=== PATIENT | female | born 1975 | race Caucasian/White ===

== ENCOUNTER 2020-01-15 17:32 | Observation (INO) | payer OTHER, SELFPAY ==
--- NOTE | ~2020-01-15 | XR_ITS ---
EXAMINATION: XR chest 2V DATE: 01/15/2020 19:02 INDICATION: Productive cough, shortness of breath and chest tightness TECHNIQUE: PA and lateral views of the chest were obtained. COMPARISON: Chest radiograph dated 03/28/2007 FINDINGS: The lungs remain clear with no focal airspace opacities, pulmonary edema, pleural effusion or pneumot horax. The cardiomediastinal silhouette is normal. Mild thoracic spondylosis with mild anterior wedgi ng of a couple mid thoracic vertebral bodies. Cholecystectomy clips in the right upper quadrant. IMPRESSION: 1. No acute cardiopulmonary disease. Reviewed, dictated and finalized at location A.
--- NOTE | ~2020-01-15 | US_ITS ---
EXAMINATION: US venous doppler [facility] DATE: 01/16/2020 10:19 INDICATION: Left thigh pain. TECHNIQUE: Grayscale ultrasound images without and with compression and Doppler ultrasound images of the left lower extremity veins were obtained. COMPARISON: None. FINDINGS: The visualized portions of left common femoral vein, profunda (deep) femoral vein, femoral vein, popl iteal vein, peroneal veins, posterior tibial veins, and greater saphenous vein outflow are patent. IMPRESSION: 1. No deep venous thrombosis. Reviewed, dictated and finalized at location A.
--- NOTE | ~2020-01-15 | CT_ITS ---
EXAMINATION: CTA chest PE protocol DATE: 01/15/2020 19:49 INDICATION: Postoperative dyspnea and chest pain TECHNIQUE: Computed tomography (CT) pulmonary angiogram of the chest was performed with 100 mL Omnipa que-350 intravenous contrast. Additional 3D reconstructions utilizing coronal maximum intensity proje ction (MIP) were performed. Automated exposure control and iterative reconstruction technique were em ployed. The dose-length product was 859.21 mGy-cm. COMPARISON: None FINDINGS: Excellent contrast opacification of the pulmonary arteries. There is mild streak artifact from dense contrast in the superior vena cava and right atrium. Mild scattered respiratory motion artifact which does not significantly limit evaluation. Small pulmonary to old films defect in the posterior segmen albert pulmonary artery of the left lower lobe. No other pulmonary emboli identified. Mosaic attenuation with dependent lung predominant likely reflecting air trapping related to small airway disease. No p neumonia, pulmonary edema, pleural effusion or pneumothorax. Heart size is normal. No leftward bowing of the ventricular septum to suggest heart strain. No pericardial effusion. Thoracic aorta is normal in caliber with no dissection. No pathologically enlarged abdominal or pelvic lymphadenopathy. Mehreen cystectomy clips at the gallbladder fossa. Visualized upper abdomen is otherwise unremarkable. Mild t horacic spondylosis. Chronic mild anterior wedging at T7. IMPRESSION: 1. Single pulmonary embolism in the posterior basilar segmental pulmonary artery of the left lower lo be. Reviewed, dictated and finalized at location A. IMPRESSION: 1. Single pulmonary embolism in the posterior basilar segmental pulmonary arter y of the left lower lobe.
--- NOTE | 2020-01-15 17:34 | ECG_ITS ---
Measurements Intervals [place] Rate: 107 P: 31 NC: 108 QRS: 38 QRSD: 84 T: 20 QT: 318 QTc: 426 Interpretive Statements SINUS TACHYCARDIA WITH SHORT NC INTERVAL NONSPECIFIC T-WAVE ABNORMALITY- INFERIOR LEADS ABNORMAL ECG Electronically Signed On 01-15-2020 19:45:02 CDT by Alexys Boles D.O.
[2020-01-15 17:44] VITALS: BP 137/70; PULSE 109; RESP 16; TEMP 36.8; O2SAT 100
[2020-01-15 17:49] VITALS: O2SAT 100
[2020-01-15 17:59] LABS: Basophils Absolute Auto 0.1 K/mm3 (0.0-0.1); Basophils Percent Auto 0.8 % (0.2-1.2); Eosinophils Absolute Auto 0.3 K/mm3 (0-0.3); Eosinophils Percent Auto 3.1 % (0-4.4); Hematocrit 31.2 % (37.0-47.0); Hemoglobin 9.1 g/dL (12.0-15.0); Immature Granulocyte Absolute 0.05 K/mm3 (0.00-0.031); Immature Granulocyte Percent A 0.6 % (0-0.5); Lymphocytes Percent Auto 18.1 % (18.3-44.2); Mean Corpuscular HGB Conc 29.2 g/dl (32-36); Mean Corpuscular Hemoglobin 19.6 pg (26-34); Mean Corpuscular Volume 67.1 fl (80-100); Mean Platelet Volume 8.9 fl (7.4-10.4); Monocytes Absolute Auto 0.6 K/mm3 (0.1-0.6); Monocytes Percent Auto 7.6 % (2.6-8.5); Neutrophils Absolute Auto 5.8 K/mm3 (1.3-6.7); Neutrophils Percent Auto 69.8 % (45.5-73.1); Platelet Count Result 482 k/mm3 (150-375); Red Blood Count 4.65 M/mm3 (4.2-5.4); Red Cell Distribution Width 19.3 % (11.5-14.5); White Blood Count 8.3 K/mm3 (4.5-10.0)
[2020-01-15 18:09] LABS: Prothrombin Time 13.1 Seconds (11.1-14.7)
[2020-01-15 18:10] LABS: Partial Thromboplastin Time 28.1 SECONDS (22.3-36.8)
[2020-01-15 18:11] LABS: Anion Gap 12 mmol/L (8-16); Blood Urea Nitrogen 6 mg/dL (7-17); Calcium 9.8 mg/dL (8.4-10.2); Carbon Dioxide 24 mmol/L (22-30); Chloride 103 mmol/L (98-107); Estimated CRCL calculation 136 ml/min; Estimated Glomerular Filt Rate > 60; Glucose 103 mg/dL (65-105); Potassium 4.2 mmol/L (3.4-5.0); Sodium 139 mmol/L (137-145)
[2020-01-15 18:16] LABS: Hypochromasia 2+ (NORMAL); Platelet Estimate Increased (Adequate)
[2020-01-15 18:18] LABS: Add Urine Microscopic? YES; Appearance Urine Clear (Clear); Bacteria Urine Trace /hpf; Bilirubin Urine Negative (Negative); Blood Urine Negative (Negative); Color Urine Colorless (Yellow); Glucose Urine UA Negative (Negative); Ketones Urine Negative (Negative); Leukocyte Esterase Ur Trace LEU/UL (Negative); Nitrate Urine Negative (Negative); Protein Urine Negative (Negative); RBC Urine 0-2 /hpf (0-2); Specific Grav Ur 1.005 (1.001-1.035); Squamous Epithelial Cell Urine Few /hpf (Few); Urobilinogen Urine Negative mg/dL (<2.0); WBC Urine 0-3 /hpf
[2020-01-15 18:23] LABS: Troponin I < 0.012 ng/mL (0.000-0.034)
[2020-01-15 18:45] VITALS: PULSE 107
[2020-01-15] MEDS: ASPIRIN 81 MG CHEWABLE TABLET 324 MG PO (18:46)
[2020-01-15 19:10] VITALS: BP 149/82; PULSE 101; RESP 18; O2SAT 100
--- NOTE | 2020-01-15 19:10 | PC.NURSE ---
report received at this time. denies any needs/concerns. call light in reach-encouraged to use. VS stable, RR even and unlabored, pt in NAD. pt remains hooked up to monitor, will continue to monitor pt for baseline status changes.
--- NOTE | 2020-01-15 19:21 | ED.GENADULT ---
HPI - General Adult General Chief complaint: Chest Pain Stated complaint: short of breath, chest pain, post op 3 days d&C Time Seen by Provider: 01/15/20 19:02 Source: RN notes reviewed History of Present Illness HPI narrative: Patient presents emergency department from home for chest pain. Patient states that Sunday the she had a D&C performed by Dr. Pedraza at [facility]. She states she had to be intubated at that time for the procedure. She states that she initially felt fine but the following day began to experience mild shortness of breath as well as chest pain describes a tightness around her bilateral lower chest. She states the symptoms of continued and progressively worsened since that time as well as developing a cough that has a metallic taste. She states she had a low-grade subjective fever last night but denies any measured temperature. She denies any abdominal pain nausea vomiting or any other symptoms Related Data Allergies Allergy/AdvReac Type Severity Reaction Status Date / Time ketoconazole Allergy Unknown Verified 09/22/14 10:56 Review of Systems Review of Systems: Narrative: Gen.: Denies fevers or chills ENT: Denies congestion Respiratory: D reports shortness of breath CV: Reports chest pain GI: Denies abdominal pain nausea, emesis or diarrhea denies burning, urgency, frequency or hematuria Musculoskeletal: Denies back pain or muscle pain Neuro: Denies numbness, tingling, weakness or focal weakness Skin: Denies rash Except as documented, all other systems reviewed and negative [facility] Past Medical History Medical History (Updated 01/15/20 @ 20:33 by Michael Ervin DO) Jackhammer esophagus Family History Family History (Updated 12/24/15 @ 23:19 by DOCTOR UNKNOWN) Mother Family history of chronic obstructive pulmonary disease Family history of malignant neoplasm of breast in first degree relative Patient's mother is Social History Social History Smoking status: Never smoker Alcohol intake: never Gender identity (if verbalized by the patient): Female Exam Narrative: Exam Narrative: APPEARANCE: No acute distress, nontoxic, resting in bed EYES: EOMI HEENT: Normocephalic, atraumatic, OMM RESPIRATORY: No respiratory distress Clear to auscultation bilaterally with no rhonchi wheezing or rales. CARDIOVASCULAR: Regular rate and rhythm without murmurs rubs or gallops. ABDOMINAL: Soft, nontender, nondistended, no rebound or guarding MUSCULOSKELETAl: Moves all extremities. No clubbing, cyanosis or edema. NEURO: Awake and alert. Following commands, speech normal, no focal deficits SKIN:: Warm, dry. No rashes lesions or abrasions PSYCHIATRIC: Normal affect/mood, Course Course Emergency Course: Discussed with patient her current anemia. She states she believes her hemoglobin is 8.9 prior to her surgery. Discussed Dr. Hoffmann presentation work-up. Agrees with admission at this time. With recent D&C and anemia will start on Xarelto p.o. but will monitor overnight to ensure no increased bleeding as the patient is postop and is currently anemic Discussed with patient and family results of workup and diagnosis. Discussed need for admission. Patient and family understand and agree to current treatment plan Vital Signs Vital signs: Vital Signs Temperature 98.3 F 01/15/20 17:44 Pulse Rate 109 H 01/15/20 17:44 Respiratory Rate 16 01/15/20 17:44 Blood Pressure 137/70 01/15/20 17:44 Pulse Oximetry 100 01/15/20 17:44 Temperature 98.3 F 01/15/20 17:44 Pulse Rate 101 H 01/15/20 19:10 Respiratory Rate 18 01/15/20 19:10 Blood Pressure 149/82 H 01/15/20 19:10 Pulse Oximetry 100 01/15/20 19:10 Medical Decision Making Vital Signs Vital Signs: Vital Signs Temperature 98.3 F 01/15/20 17:44 Pulse Rate 109 H 01/15/20 17:44 Respiratory Rate 16 01/15/20 17:44 Blood Pre
[2020-01-15 19:43] LABS: Alanine Aminotransferase 44 U/L (4-35); Albumin Level 4.6 g/dL (3.5-5.1); Alkaline Phosphatase 109 U/L (38-126); Aspartate Amino Transferase 65 U/L (14-36); Bilirubin,Total 0.2 mg/dL (0.2-1.3)
[2020-01-15] MEDS: RIVAROXABAN 15 MG TABLET PO (21:04)
[2020-01-15 21:12] LABS: Troponin I < 0.012 ng/mL (0.000-0.034)
[2020-01-15 21:34] VITALS: BP 159/89; PULSE 97; RESP 18; O2SAT 96
--- NOTE | 2020-01-15 21:50 | ADMGEN ---
This patient, Vikki Neff, was admitted to Medical Room 348-01. Patient/family oriented to hospital policies and general routines including ID bracelet, bed and alarms, visiting hours, pain management, procedures, bathroom and other care routines, personal items, smoking policy, room service/diet, and visiting hours. Valuables list has been completed. Information on how to activate the Rapid Response Team has been discussed. Patient/Family are encouraged to report perceived risks to care and to ask questions if they do not understand what they are told or what they should do.
[2020-01-15 21:53] VITALS: BP 146/82; PULSE 98; RESP 16; TEMP 36.5; O2SAT 100; BMI 40.7
[2020-01-15] MEDS: FAMOTIDINE 20 MG TABLET PO (23:10)
[2020-01-15 23:43] LABS: Troponin I < 0.012 ng/mL (0.000-0.034)
[2020-01-16] VITALS (7 sets, daily range): BP systolic 122; BP diastolic 55; PULSE 91–104; RESP 16; TEMP 36.1; O2SAT 96–98
--- NOTE | 2020-01-16 | ECHO_ITS ---
Patient Info Name: Vikki Neff Age: 44 years : 1975 Gender: Female Ht: 62 in Wt: 222 lbs BSA: 2.15 m2 HR: 95 bpm BP: 122 / 55 mmHg Heart Rhythm: Sinus Rhythm Technical Quality: Good Exam Date: 01/16/2020 2:30 PM Exam Location: [facility] Card Pulmonary Patient Status: Inpatient Admit Date: 01/15/2020 Staff Ordering Physician: Marie Hoffmann DO International Freight Forwarder: Milo Guan RDCS Attending Provider: Tricia Baugh PA-C Referring Physician: Shun SORTO; Exam Type: CA echo doppler color flow Study Info Indications I26.99 - Other pulmonary embolism without acute cor pulmonale Complete two-dimensional, color flow and Doppler transthoracic echocardiogram is performed. History/Risk Factors Pulmonary embolism; anemia, SOB, chest tightness. Summary 1. Left ventricular chamber dimension is normal. 2. Left ventricular systolic function is normal, estimated at 60-65%. 3. The left ventricular diastolic function is normal. 4. E/e' 9 is minimally elevated. 5. There is trace pulmonic regurgitation. Left Ventricle E/e' 9 is minimally elevated. Left ventricular chamber dimension is normal. Left ventricular systolic function is normal, estimated at 60-65%. The left ventricular diastolic function is normal. Right Ventricle Right ventricular chamber dimension is normal. Right ventricular systolic function is normal. Left Atria Left atrial chamber dimension is normal. Right Atria Right atrial chamber dimension is normal. Aortic Valve The aortic valve is probable trileaflet. There is no aortic valve stenosis. There is no aortic valve regurgitation. Pulmonic Valve There is trace pulmonic regurgitation. Mitral Valve There is no mitral valve stenosis. There is no mitral valve regurgitation. Tricuspid Valve There is no tricuspid valve regurgitation. Pericardium/Pleural There is no pericardial effusion. Inferior Vena Cava Normal inferior vena cava with >50% collapse upon inspiration consistent with normal right atrial pressure, 5 mmHg. Aorta The aortic root size at the sinus of Valsalva is normal. Left Ventricular Outflow Tract Name Value Normal LVOT 2D LVOT Diameter 1.9 cm LVOT Doppler LVOT Peak Gradient 5 mmHg LVOT Mean Gradient 3 mmHg LVOT VTI 20 cm LVOT VTI/AV VTI Ratio 0.7 LVOT Stroke Volume 54 ml LVOT CO 5.4 l/min LVOT CI 2.5 l/min/m2 Mitral Valve Name Value Normal MV Doppler MV Decel Drew 411 cm/s2 MV PHT 56 ms MV Area (PHT) 3.9 cm2 4.0-5.0 MV Diastolic Function
--- NOTE | 2020-01-16 05:12 | PM.IMHP ---
H&P: HPI History of Present Illness Date/Time: 01/16/20 05:12 Chief complaint: shortness of breath, chest tightness Narrative: Vikki Neff is a 44 year old female with a past medical history of iron deficiency anemia, menorrhagia with D&C 01/12/2020 who presented to the ER due to chest tightness and cough. the patient has a long history of menorrhagia and underwent a D&C on 01/12/2020. Over the last 3 days since the procedure she has had left lower chest discomfort that is worse with deep breathing. It is associated with a nonproductive cough and low-grade temperatures. The patient has been afebrile since presentation to the hospital and had a negative [place] it was 01/09/2020 prior to her D&C. She reported that her cough was nonproductive but was associated with a metallic taste in her mouth. in the ER she had a CT which demonstrated a left lower lobe pulmonary embolism. In hindsight the patient has noticed some left posterior thigh pain for the last couple of weeks. She had had outpatient x-rays which demonstrated some mild osteoarthritis of her left knee and lumbar spine. She had not been having any lower extremity swelling. She had been on medroxyprogesterone due to her menorrhagia over the last couple of weeks. She had also has a sedentary job and works for [employer]. She was also recently diagnosed with mild obstructive sleep apnea that is currently untreated. She is awaiting her dental appliance to help with her apnea symptoms. she denies a family history of DVTs or blood clots. She knows that her biological mother of breast cancer in her mid 40s. She does not know her biological father's family history. Review of Systems Review of Systems: Narrative: 12 systems were reviewed with pertinent positives and negatives per HPI. Except as documented in the HPI, all other systems were reviewed and are negative. REPLACED BY [facility] Past Medical History Medical History (Updated 01/16/20 @ 06:18 by Marie Hoffmann DO) Basal cell carcinoma resected from her left shoulder GERD (gastroesophageal reflux disease) Hypercholesterolemia Iron deficiency anemia Jackhammer esophagus Morbid obesity Obstructive sleep apnea Surgical History Surgical History (Updated 01/16/20 @ 06:18 by Marie Hoffmann DO) History of dilation and curettage January 12, 2020 History of laparoscopic cholecystectomy History of tubal ligation Hx of tonsillectomy Family History Family History Mother Breast cancer COPD (chronic obstructive pulmonary disease) Social History Social History (Updated 01/16/20 @ 06:21 by Marie Hoffmann DO) Social History: Primary care physician: Dr. Juan Jean Code status: Full code the patient lives with her of 25 years and there teenage son. She has a 23-year-old daughter as well. 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 She is a lifelong nonsmoker and never drinks alcohol or uses illicit substances. The patient was adopted but knows that she had 1 biological sister in 5 biological brothers. 1 of her biological brothers as an . Smoking status: Never smoker Second hand tobacco smoke exposure: Yes Alcohol intake: never Substance use: never Substance use type: does not use Gender identity (if verbalized by the patient): Female Sexual Orientation (if Verbalized by the Patient): Straight or Heterosexual Spiritual care concerns: No Meds Home Medications and Allergies Home Medications Medication Instructions Recorded Confirmed Type alprazolam [Xanax] 0.25 mg PO HS PRN 01/15/20 01/15/20 History celecoxib 100 mg PO HS PRN 01/15/20 01/15/20 History cyclobenzaprine 5 mg PO HS PRN 01/15/20 01/15/20 History famotidine 20 mg PO HS 01/15/20 01/15/20 History ferrous sulfate 325 mg PO DAILY 01/15/20 01/15/20 History ondansetron 4 mg PO QID PRN 12/27
[2020-01-16 05:30] LABS: Hematocrit 28.2 % (37.0-47.0); Hemoglobin 8.2 g/dL (12.0-15.0); Mean Corpuscular HGB Conc 29.1 g/dl (32-36); Mean Corpuscular Hemoglobin 19.6 pg (26-34); Mean Corpuscular Volume 67.3 fl (80-100); Mean Platelet Volume 8.6 fl (7.4-10.4); Platelet Count Result 399 k/mm3 (150-375); Red Blood Count 4.19 M/mm3 (4.2-5.4); White Blood Count 9.2 K/mm3 (4.5-10.0)
[2020-01-16] MEDS: FERROUS SULFATE 324 MG TABLET PO (08:46)
[2020-01-16] MEDS: RIVAROXABAN 15 MG TABLET PO (08:46)
[2020-01-16] MEDS: CYCLOBENZAPRINE HCL 5 MG TABLET PO (08:46)
[2020-01-16] MEDS: PANTOPRAZOLE 40 MG TABLET PO (08:46)
[2020-01-16 12:01] LABS: Hemoglobin 8.5 g/dL (12.0-15.0)
--- NOTE | 2020-01-16 15:11 | PM.DS ---
DS: Admitting Diagnosis Admitting Diagnosis Admitting Diagnosis: shortness of breath, chest tightness DS: Discharge Diagnosis Discharge Diagnosis (1) Pulmonary embolism: Code(s): I26.99 - Other pulmonary embolism without acute cor pulmonale Status: Acute Assessment and Plan: Pulmonary embolism due to recent surgical procedure/sedentary lifestyle. Venous dopplers were negative for DVT. Echo performed with normal EF and normal diastolic dysfunction. The patient has been started on anticoagulants with Xarelto. She will take 15 mg BID for 21 days then transition to 20 mg daily. she was educated on this medication and risk for bleeding and was instructed to monitor for symptoms of bleeding. She needs to follow-up with her primary care provider in 1-2 weeks. (2) Anemia: Code(s): D64.9 - Anemia, unspecified Status: Acute Assessment and Plan: Chronic iron deficiency anemia, probably secondary to menorrhagia. She had recent D&C on 01/12/2020. H&H remained stable. Continue p.o. iron supplementation. DS: Summary Hospital Course Reason for hospitalization: Shortness of breath, postoperative Hospital Course: Date of admission: 01/15/2020 Date of discharge: 01/16/2020 Vikki Neff is an obese 44-year-old female with a history of GERD, HLD, SAHARA, and menorrhagia who recently underwent D&C on 01/12/2020 at [facility]. She began having mild shortness of breath and chest tightness approximately 1 day prior to presentation. At presentation, she was tachycardic with additional vital signs stable, hemoglobin 9.1, hematocrit 31.2, troponin negative, CXR with no acute cardiopulmonary disease, and CTA showing single pulmonary embolism in the posterior basilar segmental pulmonary artery of the left lower lobe. This was felt to be secondary to her overall sedentary lifestyle and recent surgical procedure. She was admitted to the hospitalist service for further evaluation and treatment. Please see above for further details. She was started on oral anticoagulation with Xarelto. She began feeling better and her shortness of breath resolved. She was eager for discharge and given her overall improvement was felt to no longer require inpatient care. She returned home where she lives with her . She was educated on her medications and worrisome signs and symptoms for which to return. All questions were answered. She was discharged in hemodynamically stable condition on 01/16/2020. Status at Discharge Functional status at discharge: independent ambulation Overall status at discharge: patient is progressing back to baseline Time Spent with Patient Time attestation: Total time spent providing and/or coordinating discharge services: 45 minutes Time spent: Greater than 30 minutes Exam Narrative: Exam Narrative: Ms. Neff is an obese 44-year-old female who is sitting up in bed. She appears comfortable and is in no acute respiratory distress. HR 93, BP 127/55, RR 16, T 97.0?, 98% on room air Neuro: awake, alert and oriented x4, speech clear, no focal neuro deficits noted HEENMT: normocephalic, atraumatic, EOMI, sclerae anicteric, moist oral mucosa, tongue midline Neck: supple, no lymphadenopathy Respiratory: clear to auscultation bilaterally, nonlabored breathing Cardio: regular rate, regular rhythm with S1-S2 Abdomen: nondistended, normoactive bowel sounds, soft, nontender to palpation Extremities: no edema, erythema, cyanosis, or clubbing. Left thigh tender to palpation, Homans sign negative. DP pulses 2+ bilaterally Skin: no rashes or lesions, warm and dry Psych: appropriate mood and affect, judgment and insight intact DS: Data Data Completed and Pending Labs on day of discharge: Labs from last 24 hours 01/16/20 01/16/20 01/15/20 11:54 05:18 23:12 WBC 9.2 RBC 4.19 L Hgb 8.5 L 8.2 L Hct 29.0 L 28.2 L MCV 67.3 L MCH 19.6 L MCHC 29.1 L R
== END 2020-01-16 16:30 | disposition home or self-care (01) ==
LOC: ANHED 20:46 → ANH3MED 21:14
PROVIDERS: Emergency Medicine; Physician Assistant; Admitting Provider Internal Medicine; Emergency Provider Emergency Medicine; PCP Student in an Organized Health Care Education/Training Program; Visit Provider Internal Medicine
DX: I26.99 Other pulmonary embolism without acute cor pulmonale (principal); D64.9 Anemia, unspecified; E78.5 Hyperlipidemia, unspecified; E66.01 Morbid (severe) obesity due to excess calories; G47.33 Obstructive sleep apnea (adult) (pediatric); K21.9 Gastro-esophageal reflux disease without esophagitis; M17.12 Unilateral primary osteoarthritis, left knee; M47.816 Spondylosis without myelopathy or radiculopathy, lumbar region; Z68.41 Body mass index [BMI] 40.0-44.9, adult; Z85.828 Personal history of other malignant neoplasm of skin
CPT/HCPCS: 36415; 71046; 71275; 80048; 80076; 81001; 81025; 84484; 85014; 85018; 85025; 85027; 85610; 85730; 93005; 93306; 93971; 99291; A9270; G0378; Q9967

== ENCOUNTER 2020-04-26 07:11 | Outpatient (CLI) | payer OTHER, SELFPAY ==
--- NOTE | ~2020-04-26 | CT_ITS ---
EXAMINATION: CTA chest PE protocol DATE: 04/26/2020 08:52 DYE STAND LOADER INDICATION: Chest pain and shortness of breath. TECHNIQUE: Computed tomographic angiography (CTA) of the chest was performed with 100 mL Omnipaque-35 0 intravenous contrast. The dose-length product was 782.83 mGy-cm. Maximum intensity projection 3D-re constructions of the aorta and other arteries were constructed by the technologist on a separate work station. Automated exposure control and iterative reconstruction technique were employed. COMPARISON: CT dated 01/15/2020. FINDINGS: The study is technically adequate without evidence for pulmonary embolism. No thoracic lymp hadenopathy. Heart size normal. No significant pleural or pericardial effusion. There is mosaic atten uation of the lung parenchyma, likely due to air trapping from small airways disease. No endobronchia l lesion. No thoracic lymphadenopathy. The upper abdomen is unremarkable. No evidence for aortic aneu rysm or dissection. Chronic mild anterior wedging at T7. Mild thoracic spondylosis. IMPRESSION: 1. No evidence for pulmonary embolism. No acute cardiopulmonary disease. Reviewed, dictated and finalized at location B. STAND LOADER
== END 2020-04-26 07:12 | disposition home or self-care (01) ==
LOC: ANHIMG 07:17
PROVIDERS: PCP Student in an Organized Health Care Education/Training Program; Visit Provider Student in an Organized Health Care Education/Training Program
DX: R06.02 Shortness of breath (principal); R07.9 Chest pain, unspecified; I26.99 Other pulmonary embolism without acute cor pulmonale
CPT/HCPCS: 71275; Q9967

== ENCOUNTER → 2021-10-20 11:50 | Outpatient (CLI) | payer OTHER, SELFPAY ==
--- NOTE | ~2021-10-20 | MM_ITS ---
EXAMINATION: MM screening rosa BI w deepa HISTORY: Screening mammogram TECHNIQUE: Craniocaudal and mediolateral oblique 3-D tomosynthesis images were obtained and synthetic 2-D images were generated. CAD analysis was submitted and interpreted. COMPARISON: 12/03 bilateral diagnostic mammography and limited right breast ultrasound 06/06/2013 bilateral screening mammogram BREAST PARENCHYMAL COMPOSITION: FINDINGS: There is no evidence of suspicious mass, calcification, or architectural distortion to sugg est malignancy in either breast. There has been no suspicious interval change. IMPRESSION: 1. No mammographic evidence of malignancy. 2. Recommend routine screening mammography in one year. BI-RADS Category 1: Negative Reviewed, dictated and finalized at location A.
== END ==
PROVIDERS: PCP Student in an Organized Health Care Education/Training Program; Visit Provider Obstetrics & Gynecology
DX: Z12.31 Encounter for screening mammogram for malignant neoplasm of breast (principal)
CPT/HCPCS: 77063; 77067

== ENCOUNTER 2022-01-16 14:19 | Observation (INO) | payer OTHER, SELFPAY ==
--- NOTE | ~2022-01-16 | CT_ITS ---
EXAMINATION: CT abdomen pelvis w con DATE: 01/16/2022 17:04 INDICATION: Right-sided abdominal pain TECHNIQUE: Computed tomography (CT) of the abdomen and pelvis was performed with 100 mL Omnipaque-300 intravenous contrast. Automated exposure control and iterative reconstruction technique were employe d. The dose-length product was 1206.79 mGy-cm. COMPARISON: 01/28/2012 FINDINGS: Lung bases are clear. Heart size is normal. No pericardial or pleural effusion. Common bile duct is m ildly dilated to 10 mm with minimal intrahepatic biliary ductal dilation. This may be related to prio r cholecystectomy with surgical clips at the gallbladder fossa. There is an additional surgical clip within the hepatic parenchyma near the gallbladder fossa potentially having migrated within the bilia ry tree.. Spleen, pancreas and bilateral adrenal glands are normal. There is excreted contrast within the bilateral renal collecting systems which demonstrate chronic mild hydronephrosis with transition points at the ureteropelvic junctions without evident obstructing stones or masses. Subtle contrast opacified right ureteral jet within the normal-appearing bladder. Anteverted uterus and bilateral ova justo are unremarkable. Likely tubal ligation clips along the bilateral broad ligaments. There are few scattered diverticula along the sigmoid colon without adjacent inflammatory change to suggest divert iculitis. Small bowel and appendix are normal. No free intraperitoneal gas or fluid. No pathologicall y enlarged abdominal or pelvic lymphadenopathy. Bones are unremarkable. IMPRESSION: 1. Unchanged mild bilateral hydronephrosis without evident obstructing stones or masses suggesting ch ronic mild UPJ obstruction. 2. Common bile duct mildly dilated to 10 mm with mild central intrahepatic biliary ductal dilation wh ich is within normal limits post cholecystectomy. Could consider correlation with liver function test s. Reviewed, dictated and finalized at location A. IMPRESSION: 1. Unchanged mild bilateral hydronephrosis without evident obstructing stones o r masses suggesting chronic mild UPJ obstruction. 2. Common bile duct mildly dilated to 10 mm with mild central intrahepatic bili irineo ductal dilation which is within normal limits post cholecystectomy. Could c onsider correlation with liver function tests.
--- NOTE | ~2022-01-16 | MR_ITS ---
EXAMINATION: MR MRCP wo/w con/w 3D wo ind DATE: 01/17/2022 07:08 INDICATION: Common bile duct dilatation. Right upper quadrant abdominal pain. TECHNIQUE: Magnetic resonance imaging (MRI) of the abdomen was performed without and with 18 mL Multi Aida intravenous contrast. Sequences included coronal T2-weighted FS FSE, coronal T2-weighted FSE, a xial T1-weighted LAVA, coronal FS FIESTA, axial dual-echo T1-weighted SPGR, coronal lava-FLEX, sagitt al T2-weighted FSE, axial T2-weighted FSE, and axial DWI. Thick-slab T2-weighted FSE images were obta ined for magnetic resonance cholangiopancreatography (MRCP). Maximum intensity projection 3-D reconst ructions of the volumetric data were created by the technologist. Postcontrast sequences included cor onal LAVA-flex and time course of axial T1-weighted LAVA. COMPARISON: CT abdomen and pelvis 01/16/2022, 01/28/12 FINDINGS: ABDOMEN MRI: There is diffuse hepatic steatosis. The gallbladder is absent. The spleen is normal. Saini creas divisum is noted. The adrenal glands are normal. There is mild bilateral hydronephrosis. There are no dilated loops of bowel. There are no pathologically enlarged lymph nodes. There is no free int raperitoneal fluid. ABDOMEN MRCP: The common hepatic duct measures 12 mm. The common bile duct measures 5 mm. No choledoc holithiasis. IMPRESSION: 1. Diffuse hepatic steatosis. 2. Mildly dilated common duct, stable from 01/28/12. No choledocholithiasis. 3. Mild bilateral hydronephrosis, stable from 01/28/12. Reviewed, dictated and finalized at location A.
[2022-01-16 14:22] VITALS: BP 152/77; PULSE 107; RESP 16; TEMP 36.4; O2SAT 99
[2022-01-16 14:46] LABS: Basophils Absolute Auto 0.1 K/mm3 (0.0-0.1); Basophils Percent Auto 0.8 % (0.2-1.2); Eosinophils Absolute Auto 0.2 K/mm3 (0-0.3); Eosinophils Percent Auto 2.4 % (0-4.4); Hematocrit 43.7 % (37.0-47.0); Hemoglobin 14.3 g/dL (12.0-15.0); Immature Granulocyte Absolute 0.02 K/mm3 (0.00-0.031); Immature Granulocyte Percent A 0.3 % (0-0.5); Lymphocytes Percent Auto 16.4 % (18.3-44.2); Mean Corpuscular HGB Conc 32.7 g/dl (32-36); Mean Corpuscular Hemoglobin 28.3 pg (26-34); Mean Corpuscular Volume 86.5 fl (80-100); Mean Platelet Volume 9.2 fl (7.4-10.4); Monocytes Absolute Auto 0.5 K/mm3 (0.1-0.6); Monocytes Percent Auto 5.9 % (2.6-8.5); Neutrophils Absolute Auto 5.9 K/mm3 (1.3-6.7); Neutrophils Percent Auto 74.2 % (45.5-73.1); Platelet Count Result 342 k/mm3 (150-375); Red Blood Count 5.05 M/mm3 (4.2-5.4); Red Cell Distribution Width 14.2 % (11.5-14.5); White Blood Count 7.9 K/mm3 (4.5-10.0)
[2022-01-16 14:56] LABS: Alanine Aminotransferase 57 U/L (6-35); Albumin Level 5.1 g/dL (3.5-5.1); Alkaline Phosphatase 110 U/L (38-126); Anion Gap 13 mmol/L (8-16); Aspartate Amino Transferase 91 U/L (14-36); Bilirubin,Total 0.6 mg/dL (0.2-1.3); Blood Urea Nitrogen 6 mg/dL (7-17); Calcium 10.2 mg/dL (8.4-10.2); Carbon Dioxide 23 mmol/L (22-30); Chloride 104 mmol/L (98-107); Estimated CRCL calculation 93 ml/min; Estimated Glomerular Filt Rate > 60; Glucose 103 mg/dL (65-110); Lipase 71 U/L (23-300); Potassium 4.2 mmol/L (3.4-5.0); Sodium 140 mmol/L (137-145)
[2022-01-16 15:46] LABS: Appearance Urine Clear (Clear); Bilirubin Urine Negative (Negative); Blood Urine Trace-lysed (Negative); Color Urine Yellow (Yellow); Glucose Urine UA Negative (Negative); Ketones Urine 1+ mg/dL (Negative); Leukocyte Esterase Ur 1+ LEU/UL (Negative); Nitrate Urine Negative (Negative); Protein Urine Negative (Negative); Urobilinogen Urine 0.2 mg/dL (<2.0)
[2022-01-16 15:58] VITALS: BP 121/70; O2SAT 99
[2022-01-16 16:01] VITALS: BP 123/72; O2SAT 99
[2022-01-16 16:04] LABS: Mucus Urine Rare /lpf; Squamous Epithelial Cell Urine Many /hpf (Few); WBC Urine 51-75 /hpf
[2022-01-16 16:06] LABS: Add Urine Microscopic? YES
--- NOTE | 2022-01-16 16:29 | ED.ABDPAIN ---
HPI - Abdominal Pain General Chief Complaint: Abdominal Pain <SUNSIHNE Saavedra Last Filed: 01/16/22 18:54> Stated Complaint: abd pain, threw up blood <SUNSHINE Saavedra Last Filed: 01/16/22 18:54> Time Seen by Provider: 01/16/22 15:27 <SUNSHINE Saavedra Last Filed: 01/16/22 18:54> Source: patient <SUNSHINE Saavedra Last Filed: 01/16/22 18:54> Mode of arrival: ambulatory <SUNSHINE Saavedra Last Filed: 01/16/22 18:54> Limitations: no limitations <SUNHSINE Saavedra Last Filed: 01/16/22 18:54> History of Present Illness HPI narrative: Patient is a 46-year-old female who presents to the ED with report of right upper quadrant abdominal pain. Patient reports pain began suddenly around 1 PM today while she was sitting down watching TV. She states the pain radiates around to her right back and up between her shoulder blades. She also reports having nausea, vomiting, but denies any fever, chills, diarrhea, constipation, dysuria, hematuria. Patient has not taken anything for pain today. Hx of cholecystectomy. No Hx of kidney stones. No CP, SOB. <SUNSHINE Saavedra Last Filed: 01/16/22 18:54> Related Data Home Medications: Home Medications Medication Instructions Recorded Confirmed alprazolam 0.25 mg tablet (Xanax) 0.25 mg PO HS PRN Anxiety 01/15/20 08/26/21 cyclobenzaprine 5 mg tablet 5 mg PO HS PRN Muscle Spasm 01/15/20 08/26/21 famotidine 20 mg tablet 20 mg PO HS 01/15/20 08/26/21 ondansetron 4 mg disintegrating 4 mg PO QID PRN Nausea 01/15/20 08/26/21 tablet pantoprazole 40 mg tablet,delayed 40 mg PO BID 01/15/20 08/26/21 release tramadol 50 mg tablet 50 mg PO Q6H PRN Pain, Severe 01/15/20 01/15/20 <Kenia Samuel PA-C - Last Filed: 01/16/22 18:54> Allergies/Adverse Reactions: Allergies Allergy/AdvReac Type Severity Reaction Status Date / Time ketoconazole Allergy Intermediate Loss of Verified 08/26/21 08:37 Consciousness <Kenia Samuel PA-C - Last Filed: 01/16/22 18:54> Review of Systems Review of Systems: CONSTITUTIONAL: Denies fever, chills, or sweats. CARDIOVASCULAR: Denies chest pain. RESPIRATORY: Denies dyspnea. GASTROINTESTINAL: Reports right upper quadrant abdominal pain, nausea, vomiting. Denies constipation, diarrhea. GENITOURINARY: Denies dysuria or hematuria. MUSCULOSKELETAL: Reports pain between shoulder blades, radiating from abdomen. <Kenia Samuel PA-C - Last Filed: 01/16/22 18:54> All systems reviewed & are unremarkable except as noted in HPI and below <Kenia Samuel PA-C - Last Filed: 01/16/22 18:54> [facility] Past Medical History Medical History: Medical History (Updated 01/16/22 @ 18:48 by Kenia Samuel PA-C) Basal cell carcinoma resected from her left shoulder GERD (gastroesophageal reflux disease) History of pulmonary embolism Hypercholesterolemia Iron deficiency anemia Jackhammer esophagus Morbid obesity Obstructive sleep apnea <Kenia Samuel PA-C - Last Filed: 01/16/22 18:54> Surgical History Surgical History: Surgical History History of dilation and curettage January 12, 2020 History of laparoscopic cholecystectomy History of tubal ligation Hx of tonsillectomy <SUNSHINE Saavedra Last Filed: 01/16/22 18:54> Family History Family History: Family History Mother Breast cancer COPD (chronic obstructive pulmonary disease) Grandparent Parkinson's disease <Kenia Samuel PA-C - Last Filed: 01/16/22 18:54> Social History Social History: Social History Social History: Primary care physician: Dr. Juan Jean Code status: Full code the patient lives with her husban
[2022-01-16] MEDS: SODIUM CHLORIDE 0.9% IV 1,000 ML 999 ML IV CONT (17:04)
[2022-01-16] MEDS: ONDANSETRON INJ 4 MG/2 ML VIAL IV PUSH ×2 (17:04→21:06)
[2022-01-16] MEDS: MORPHINE SULFATE (*CRX) 4 MG/ML INJ IV PUSH ×2 (17:05→21:05)
[2022-01-16] MEDS: HYDROmorphone HCL INJ (*CRX) 1 MG/ML SYR IV PUSH (18:10)
[2022-01-16 19:10] VITALS: BP 103/54; PULSE 82; RESP 20; O2SAT 95
--- NOTE | 2022-01-16 19:34 | PC.NURSE ---
Report received by Katalina RUCKER for 260.
--- NOTE | 2022-01-16 20:05 | ADMGEN ---
This patient, Vikki Neff, was admitted to 2 Medical Room 260-01. Patient/family oriented to hospital policies and general routines including ID bracelet, bed and alarms, visiting hours, pain management, procedures, bathroom and other care routines, personal items, smoking policy, room service/diet, and visiting hours. Information on how to activate the Rapid Response Team has been discussed. Patient/Family are encouraged to report perceived risks to care and to ask questions if they do not understand what they are told or what they should do.
[2022-01-16 20:43] VITALS: BMI 36.6
--- NOTE | 2022-01-16 22:13 | PM.IMHP ---
H&P: HPI History of Present Illness Date/Time: 01/16/22 22:00 Chief Complaint: Abdominal pain Narrative: This is a 46-year-old female patient who has had a past history of cholecystectomy. The patient came to the emergency room with complaints of right upper quadrant pain that started around 1:00 p.m. today while watching TV. Patient does have a jackhammer sulfa diet is as well. The patient takes a PPI for this. The patient stated that she developed right upper quadrant pain that radiated to her back. She said she was nauseated as well. Patient stated that she is typically nauseated with her jackhammer esophagitis. Liver enzymes are slightly elevated. CT of the abdomen was read as the following. Unchanged mild bilateral hydronephrosis without evident obstructing stones or masses suggesting chronic mild UPJ obstruction. 2. Common bile duct mildly dilated to 10 mm with mild central intrahepatic biliary ductal dilation which is within normal limits post cholecystectomy. Could consider correlation with liver function tests. GI has been consulted. Abnormal urine with many squamous epithelial cells could possibly be a contaminant. However the patient was started on Rocephin. The patient is being admitted to observation status on the date of service of 01/16/2022. Review of Systems Review of Systems: See HPI All systems reviewed & are unremarkable except as noted in HPI and below Constitutional: Constitutional: Reports as per HPI and Reports no additional constitutional complaints Eyes: Eyes: Reports as per HPI and Reports no additional eye complaints ENT: Reports system reviewed and no additional complaints, except as documented and Reports Normal hearing present Cardiovascular: Cardiovascular: Reports no additional cardiovascular complaints Respiratory: Respiratory: Reports no additional respiratory complaints and Reports no additional respiratory complaints Gastrointestinal: Gastrointestinal: Reports as per HPI and Reports no additional gastrointestinal complaints Musculoskeletal: Musculoskeletal: Reports no additional musculoskeletal complaints Integumentary/Breasts: Skin/Breast: Reports system reviewed and no additional complaints, except as docu and Reports as per HPI Neurologic: Reports system reviewed and no additional complaints, except as documented, Reports as per HPI and Reports Normal hearing present Psychiatric: Psychiatric: Reports no additional psychiatric complaints and Reports as per HPI Endocrine: Endocrine: Reports no additional endocrine complaints Hematologic/Lymphatic: Hematologic/Lymphatic: Reports no additional hematologic/lymphatic complaints Allergic/Immunologic: Allergic/Immunologic: Reports no additional allergic/immunologic complaints [facility] Past Medical History Medical History (Updated 01/16/22 @ 22:28 by Angely Gtz NP) Basal cell carcinoma resected from her left shoulder GERD (gastroesophageal reflux disease) History of pulmonary embolism Hypercholesterolemia Iron deficiency anemia Jackhammer esophagus Morbid obesity Screening mammogram for breast cancer Surgical History Surgical History (Updated 01/16/22 @ 22:26 by Angely Gtz NP) History of dilation and curettage January 12, 2020 History of laparoscopic cholecystectomy History of removal of pigmented skin lesion History of tubal ligation Hx of tonsillectomy Family History Family History Mother Breast cancer COPD (chronic obstructive pulmonary disease) Grandparent Parkinson's disease Social History Social History (Updated 01/16/22 @ 22:22 by Angely Gtz NP) Social History: Primary care physician: Dr. Juan Jean Code status: Full code the patient lives with her of 25 years and 2 children, son and daughter. 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 She is a lifelong nonsmoker and never
[2022-01-16 22:14] VITALS: BP 101/69; PULSE 67; RESP 20; TEMP 36.1; O2SAT 98
[2022-01-16] MEDS: RIVAROXABAN 20 MG TABLET PO (22:42)
[2022-01-16] MEDS: PANTOPRAZOLE SODIUM IV 40 MG VIAL IV PUSH (23:10)
[2022-01-17] MEDS: MORPHINE SULFATE (*CRX) 4 MG/ML INJ IV PUSH ×4 (03:15→20:09)
[2022-01-17 06:05] LABS: Basophils Absolute Auto 0.1 K/mm3 (0.0-0.1); Basophils Percent Auto 1.1 % (0.2-1.2); Eosinophils Absolute Auto 0.2 K/mm3 (0-0.3); Eosinophils Percent Auto 2.4 % (0-4.4); Hematocrit 39.9 % (37.0-47.0); Hemoglobin 12.5 g/dL (12.0-15.0); Immature Granulocyte Absolute 0.02 K/mm3 (0.00-0.031); Immature Granulocyte Percent A 0.3 % (0-0.5); Lymphocytes Absolute Auto 1.44 K/mm3 (0.9-3.2); Lymphocytes Percent Auto 23.2 % (18.3-44.2); Mean Corpuscular HGB Conc 31.3 g/dl (32-36); Mean Corpuscular Hemoglobin 27.8 pg (26-34); Mean Corpuscular Volume 88.7 fl (80-100); Mean Platelet Volume 9.8 fl (7.4-10.4); Monocytes Absolute Auto 0.5 K/mm3 (0.1-0.6); Monocytes Percent Auto 7.7 % (2.6-8.5); Neutrophils Absolute Auto 4.1 K/mm3 (1.3-6.7); Neutrophils Percent Auto 65.3 % (45.5-73.1); Platelet Count Result 297 k/mm3 (150-375); Red Cell Distribution Width 14.1 % (11.5-14.5); White Blood Count 6.2 K/mm3 (4.5-10.0)
[2022-01-17 06:15] LABS: Lactic Acid Reflex 0.9 mmol/L (0.7-2.0)
[2022-01-17 06:22] LABS: Alanine Aminotransferase 75 U/L (6-35); Albumin Level 4.4 g/dL (3.5-5.1); Alkaline Phosphatase 110 U/L (38-126); Anion Gap 11 mmol/L (8-16); Aspartate Amino Transferase 103 U/L (14-36); Bilirubin,Total 0.5 mg/dL (0.2-1.3); Blood Urea Nitrogen 6 mg/dL (7-17); Calcium 9.6 mg/dL (8.4-10.2); Carbon Dioxide 25 mmol/L (22-30); Chloride 102 mmol/L (98-107); Estimated CRCL calculation 106 ml/min; Estimated Glomerular Filt Rate > 60; Glucose 93 mg/dL (65-110); Lactate Dehydrogenase 219 U/L (120-246); Lipase 62 U/L (23-300); Magnesium 2.2 mg/dL (1.6-2.3); Sodium 138 mmol/L (137-145)
[2022-01-17 06:33] VITALS: BP 123/61; PULSE 69; RESP 20; TEMP 36.6; O2SAT 98
--- NOTE | 2022-01-17 07:32 | WPDGICN ---
Assessment and Plan Assessment and plan (1) Right upper quadrant pain: Code(s): R10.11 - Right upper quadrant pain Status: Acute Assessment and Plan: her pain fits the description of biliary colic, suggesting common bile duct stone, choledocholithiasis. The slightly dilated bile ducts On the CT scan are within normal limits post cholecystectomy. her pain is alleviated in part with the analgesics she is receiving. She is not nauseated this morning. I will start her on clear liquid diet and see if she can handle that. MRCP has been done and the results are: IMPRESSION: 1. Diffuse hepatic steatosis. 2. Mildly dilated common duct, stable from 01/28/12. No choledocholithiasis. 3. Mild bilateral hydronephrosis, stable from 01/28/12. (2) Common bile duct dilatation: Code(s): K83.8 - Other specified diseases of biliary tract Status: Acute Assessment and Plan: Somewhat dilated common bile duct on CT. MRCP just done does not seem to show any stones in the bile duct. 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 She did receive a dose last night. I will hold it until we are certain she will not need intervention such as ERCP (4) Jackhammer esophagus: Code(s): K22.4 - Dyskinesia of esophagus Status: Acute Assessment and Plan: she had been tried on calcium channel blockers without success in that it dropped her blood pressure. She has had periodic dilatation of the esophagus which does seem to give her some temporary relief although that is not usually part of the therapy. She is currently taking pantoprazole, dicyclomine, Xanax, and cyclobenzaprine to help control those symptoms. (5) Pulmonary embolism: Code(s): I26.99 - Other pulmonary embolism without acute cor pulmonale Status: Acute Assessment and Plan: Consequently, she is on Xarelto (6) Transaminitis: Code(s): R74.01 - Elevation of levels of liver transaminase levels Status: Acute Assessment and Plan: this most likely is due to the hepatic steatosis. I will Advise her on the need to reduce weight and avoid steatohepatitis and possible change to cirrhosis. GI Consult Note Consult date/time: 01/17/22 07:32 HPI: Vikki Neff is a 46 year old female who presented to the emergency room yesterday after developing acute upper abdominal pain about 1:00 p.m.. The pain has persisted and was accompanied by nausea. She did have some emesis yesterday and last night. She had not had a pain like this in the past except perhaps prior to her cholecystectomy 15 years ago. She also suffers from jackhammer esophagus which is a form of esophageal spasm. It is usually treated with diltiazem but she states that it made her blood pressure very low. She has had periodic dilatation of the esophagus by Dr. Islas which gives her temporary relief. She has been able to eat lately. She denies any gastrointestinal symptoms up until last night other than the above. She has been found to have some elevation of her liver enzymes, although they are not much higher than they were 2 years ago. Her AST was 65 in December of 2019. It was 91 on admission and this morning is 103. Her bilirubin is actually normal, As is the alkaline phosphatase. Lipase is also normal. CT scan of the abdomen showed: . Unchanged mild bilateral hydronephrosis without evident obstructing stones or masses suggesting chronic mild UPJ obstruction. 2. Common bile duct mildly dilated to 10 mm with mild central intrahepatic biliary ductal dilation which is within normal limits post cholecystectomy. Could consider correlation with liver function tests. MRCP has just been done and results are pending. If she does in fact have evidence of a common bile duct stone, ERCP would be indicated.
[2022-01-17] MEDS: PANTOPRAZOLE SODIUM IV 40 MG VIAL IV PUSH ×2 (08:08→20:09)
--- NOTE | 2022-01-17 13:02 | P.PNIM_ITS ---
Progress Note: A&P Assessment and Plan (1) Common bile duct dilatation: Code(s): K83.8 - Other specified diseases of biliary tract Status: Acute Assessment and Plan: Patient presented with right upper quadrant pain * Patient is s/p cholecystectomy * CT of the abdomen/pelvis on admission showed mildly dilated common bile duct at 10 mm * MRCP completed today which showed diffuse hepatic steatosis with mildly dil ated common duct stable from 01/28/2020 12 with no evidence of choledocholithiasis * Appreciate gastroenterology consultation * Continue with clear liquid diet. Advance as tolerated per GI recommendations * Supportive care. Analgesics available as needed (2) Jackhammer esophagus: Code(s): K22.4 - Dyskinesia of esophagus Status: Acute Assessment and Plan: Chronic issue. Reportedly improves following esophageal dilation. Last dilation was 2 years ago * Continue Protonix, dicyclomine, alprazolam, and cyclobenzaprine * Continue with regularly scheduled GI follow-up (3) Transaminitis: Code(s): R74.01 - Elevation of levels of liver transaminase levels Status: Acute Assessment and Plan: LFTs mildly elevated * Likely due to diffuse hepatic steatosis * Continue to trend (4) Hydronephrosis: Code(s): N13.30 - Unspecified hydronephrosis Status: Acute Assessment and Plan: Appears chronic and unchanged * CT of the abdomen/pelvis showed unchanged mild bilateral hydronephrosis without obstruction or masses * No need for further evaluation at this time (5) Abnormal urinalysis: Code(s): R82.90 - Unspecified abnormal findings in urine Status: Acute Assessment and Plan: UA on presentation slightly abnormal with 1+ leuk esterase and 51-75 WBC however with many squamous cells * Patient is asymptomatic * Will discontinue antibiotics at this time given lack of symptoms, no clinical signs to suggest acute infection * Urine culture is pending (6) Anemia: Code(s): D64.9 - Anemia, unspecified Status: Acute Assessment and Plan: Patient with history of iron deficiency anemia. 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 She endorses 6/10 right upper quadrant pain today that she describes as intermittent twisting/stabbing. Her pain spreads from the right upper quadrant up into the sternum and the rounds of back up into the shoulder blade ?like a U. She states pain is slightly alleviated when she lays on the left side. She had clear liquids for breakfast and felt nauseated after. She denies emesis. Denies abdominal cramping or bloating. Her last bowel movement was 2 days ago. She states her stool is mushy and atilio-colored and this is typical for her. She denies dysuria, hematuria, urgency, frequency, suprapubic pain, flank pain. Review of Systems Review of Systems: All
--- NOTE | 2022-01-17 13:02 | PM.IMPN ---
Progress Note: A&P Assessment and Plan (1) Common bile duct dilatation: Code(s): K83.8 - Other specified diseases of biliary tract Status: Acute Assessment and Plan: Patient presented with right upper quadrant pain Patient is s/p cholecystectomy CT of the abdomen/pelvis on admission showed mildly dilated common bile duct at 10 mm MRCP completed today which showed diffuse hepatic steatosis with mildly dilated common duct stable from 01/28/2020 12 with no evidence of choledocholithiasis Appreciate gastroenterology consultation Continue with clear liquid diet. Advance as tolerated per GI recommendations Supportive care. Analgesics available as needed (2) Jackhammer esophagus: Code(s): K22.4 - Dyskinesia of esophagus Status: Acute Assessment and Plan: Chronic issue. Reportedly improves following esophageal dilation. Last dilation was 2 years ago Continue Protonix, dicyclomine, alprazolam, and cyclobenzaprine Continue with regularly scheduled GI follow-up (3) Transaminitis: Code(s): R74.01 - Elevation of levels of liver transaminase levels Status: Acute Assessment and Plan: LFTs mildly elevated Likely due to diffuse hepatic steatosis Continue to trend (4) Hydronephrosis: Code(s): N13.30 - Unspecified hydronephrosis Status: Acute Assessment and Plan: Appears chronic and unchanged CT of the abdomen/pelvis showed unchanged mild bilateral hydronephrosis without obstruction or masses No need for further evaluation at this time (5) Abnormal urinalysis: Code(s): R82.90 - Unspecified abnormal findings in urine Status: Acute Assessment and Plan: UA on presentation slightly abnormal with 1+ leuk esterase and 51-75 WBC however with many squamous cells Patient is asymptomatic Will discontinue antibiotics at this time given lack of symptoms, no clinical signs to suggest acute infection Urine culture is pending (6) Anemia: Code(s): D64.9 - Anemia, unspecified Status: Acute Assessment and Plan: Patient with history of iron deficiency anemia. 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 She endorses 6/10 right upper quadrant pain today that she describes as intermittent twisting/stabbing. Her pain spreads from the right upper quadrant up into the sternum and the rounds of back up into the shoulder blade ?like a U. She states pain is slightly alleviated when she lays on the left side. She had clear liquids for breakfast and felt nauseated after. She denies emesis. Denies abdominal cramping or bloating. Her last bowel movement was 2 days ago. She states her stool is mushy and atilio-colored and this is typical for her. She denies dysuria, hematuria, urgency, frequency, suprapubic pain, flank pain. Review of Systems Review of Systems: All systems reviewed & are unremarkable except as noted in HPI and below Exam Narrative: General: Obese, well-appearing 46-year-old female, sitting up in bed, comfortable, NARD Neuro: awake, alert and oriented x4, speech clear, no focal neuro deficits noted HEENMT: normocephalic, atraumatic, EOMI, sclerae anicteric, moist oral mucosa Respiratory: clear to auscultation bilaterally, nonlabored breathing Cardio: regular rate, regular rhythm with S
[2022-01-17 13:53] VITALS: BP 92/52; PULSE 55; RESP 16; TEMP 36.6; O2SAT 96
[2022-01-17 22:00] VITALS: BP 102/55; PULSE 62; RESP 18; TEMP 35.9; O2SAT 97
[2022-01-17] MEDS: ALPRAZolam (*CRX) 0.25 MG TABLET PO (23:06)
[2022-01-18] MEDS: MORPHINE SULFATE (*CRX) 4 MG/ML INJ IV PUSH (03:15)
[2022-01-18 05:55] LABS: Hematocrit 40.6 % (37.0-47.0); Hemoglobin 12.7 g/dL (12.0-15.0); Mean Corpuscular HGB Conc 31.3 g/dl (32-36); Mean Corpuscular Hemoglobin 28.1 pg (26-34); Mean Corpuscular Volume 89.8 fl (80-100); Mean Platelet Volume 9.3 fl (7.4-10.4); Platelet Count Result 267 k/mm3 (150-375); Red Blood Count 4.52 M/mm3 (4.2-5.4); Red Cell Distribution Width 14.3 % (11.5-14.5); White Blood Count 5.1 K/mm3 (4.5-10.0)
[2022-01-18 05:58] VITALS: BP 140/52; PULSE 74; RESP 20; TEMP 36.6; O2SAT 99
[2022-01-18 06:10] LABS: Anion Gap 11 mmol/L (8-16); Blood Urea Nitrogen 5 mg/dL (7-17); Carbon Dioxide 29 mmol/L (22-30); Chloride 101 mmol/L (98-107); Estimated CRCL calculation 92 ml/min; Estimated Glomerular Filt Rate > 60; Glucose 91 mg/dL (65-110); Potassium 4.1 mmol/L (3.4-5.0); Sodium 141 mmol/L (137-145)
--- NOTE | 2022-01-18 06:51 | WPDGIPROGNO ---
Progress Note: A&P Assessment and Plan (1) Right upper quadrant pain: Code(s): R10.11 - Right upper quadrant pain Status: Acute Assessment and Plan: her pain fits the description of biliary colic, suggesting common bile duct stone, choledocholithiasis. The slightly dilated bile ducts On the CT scan are within normal limits post cholecystectomy. her pain is alleviated in part with the analgesics she is receiving. She is not nauseated this morning. I will start her on clear liquid diet and see if she can handle that. MRCP has been done and the results are: IMPRESSION: 1. Diffuse hepatic steatosis. 2. Mildly dilated common duct, stable from 01/28/12. No choledocholithiasis. 3. Mild bilateral hydronephrosis, stable from 01/28/12. (2) Common bile duct dilatation: Code(s): K83.8 - Other specified diseases of biliary tract Status: Acute Assessment and Plan: Somewhat dilated common bile duct on CT. MRCP just done does not seem to show any stones in the bile duct. imaging study showed that her bile duct is the same as it was 10 years ago 01/18/2022 I would advance her diet. 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 She did receive a dose last night. I will hold it until we are certain she will not need intervention such as ERCP 01/18/2022 will restart Xarelto as no need for ERCP (4) Jackhammer esophagus: Code(s): K22.4 - Dyskinesia of esophagus Status: Acute Assessment and Plan: she had been tried on calcium channel blockers without success in that it dropped her blood pressure. She has had periodic dilatation of the esophagus which does seem to give her some temporary relief although that is not usually part of the therapy. She is currently taking pantoprazole, dicyclomine, Xanax, and cyclobenzaprine to help control those symptoms. (5) Pulmonary embolism: Code(s): I26.99 - Other pulmonary embolism without acute cor pulmonale Status: Acute Assessment and Plan: Consequently, she is on Xarelto (6) Transaminitis: Code(s): R74.01 - Elevation of levels of liver transaminase levels Status: Acute Assessment and Plan: this most likely is due to the hepatic steatosis. I will Advise her on the need to reduce weight and avoid steatohepatitis and possible change to cirrhosis. Subjective Date/time seen: Vikki Neff is a 46 year old female? who presented to the emergency room yesterday after developing acute upper abdominal pain about 1:00 p.m..? The pain has persisted and was accompanied by nausea.? She did have some emesis yesterday and last night.? She had not had a pain like this in the past except perhaps prior to her cholecystectomy 15 years ago.? She also suffers from jackhammer esophagus which is a form of? esophageal spasm.? It is usually treated with diltiazem but she states that it made her blood pressure very low.? She has had periodic dilatation of the esophagus by Dr. Islas which gives her temporary relief.? She has been able to eat lately.? She denies any gastrointestinal symptoms up until last night other than the above.? She has been found to have some elevation of her liver enzymes, although they are not much higher than they were 2 years ago.? Her AST was 65 in December of 2019.? It was 91 on admission and this morning is 103.? Her bilirubin is actually normal, ? As is the alkaline phosphatase. ? Lipase is also normal. CT scan of the abdomen showed:?. Unchanged mild bilateral hydronephrosis without evident obstructing stones or masses suggesting chronic mild UPJ obstruction. 2. Common bile duct mildly dilated to 10 mm with mild central intrahepatic biliary ductal dilation which is within normal limits post cholecystectomy. Could consider correlation with liver function tests.?
[2022-01-18] MEDS: PANTOPRAZOLE SODIUM IV 40 MG VIAL IV PUSH (08:45)
[2022-01-18] MEDS: HYDROcodone/acetaminophen (*CRX) 5-325 MG TABLET 1 TAB PO (12:16)
--- NOTE | 2022-01-18 12:40 | PM.DS ---
DS: Admitting Diagnosis Discharge Date January 18, 2022 Admitting Diagnosis Abdominal pain DS: Discharge Diagnosis Discharge Diagnosis (1) Common bile duct dilatation: Code(s): K83.8 - Other specified diseases of biliary tract Status: Acute Assessment and Plan: Patient presented with right upper quadrant pain Patient is s/p cholecystectomy CT of the abdomen/pelvis on admission showed mildly dilated common bile duct at 10 mm MRCP completed today which showed diffuse hepatic steatosis with mildly dilated common duct stable from 01/28/2020 12 with no evidence of choledocholithiasis Appreciate gastroenterology consultation -no further plan. Tolerating diet. 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 Reportedly improves following esophageal dilation. Last dilation was 2 years ago Continue Protonix, dicyclomine, alprazolam, and cyclobenzaprine Continue with regularly scheduled GI follow-up (3) Transaminitis: Code(s): R74.01 - Elevation of levels of liver transaminase levels Status: Acute Assessment and Plan: LFTs mildly elevated Likely due to diffuse hepatic steatosis Continue to trend (4) Hydronephrosis: Code(s): N13.30 - Unspecified hydronephrosis Status: Acute Assessment and Plan: Appears chronic and unchanged CT of the abdomen/pelvis showed unchanged mild bilateral hydronephrosis without obstruction or masses No need for further evaluation at this time (5) Abnormal urinalysis: Code(s): R82.90 - Unspecified abnormal findings in urine Status: Acute Assessment and Plan: UA on presentation slightly abnormal with 1+ leuk esterase and 51-75 WBC however with many squamous cells Patient is asymptomatic Will discontinue antibiotics at this time given lack of symptoms, no clinical signs to suggest acute infection Urine culture is pending (6) Anemia: Code(s): D64.9 - Anemia, unspecified Status: Acute Assessment and Plan: Patient with history of iron deficiency anemia. 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 MRCP showed mild dilation of her CBD. GI was consulted in felt there was no stone present and advanced her diet she was able to tolerate diet. She will be discharged home today on pain medication she should follow up with GI. Otherwise she is tolerating a diet without any nausea vomiting. Time Spent with Patient Time attestation: Total time spent providing and/or coordinating discharge services: Exam Narrative: General: Obese, well-appearing 46-year-old female, sitting up in bed, comfortable, NARD Neuro: awake, alert and oriented x4, speech clear, no focal neuro deficits noted HEENMT: normocephalic, atraumatic, EOMI, sclerae anicteric, moist oral mucosa Respiratory: clear to auscultation bilaterally, nonlabored breathing Cardio: regular rate, regular rhythm with S1-S2 Abdomen: nondistended, normoactive bowel sounds, soft, tender to palpation in right upper quadrant and epigastric region : No CVA tenderness Extremities: no edema, erythema, or tenderness to palpation Skin: no rashes or lesions, warm and dry Psych: appropriate mood and affect, judgment and insight intact DS: Data Data Completed and Pending Labs on day of discharge: Labs from last 24 hours 01/18/22 01/18/22 05:48 05:48 WBC 5.1 RBC
== END 2022-01-18 13:53 | disposition home or self-care (01) ==
LOC: ANHED 15:40 → ANH2MED 18:48
PROVIDERS: Emergency Medicine; Nurse Practitioner; Physician Assistant; Admitting Provider Internal Medicine; Emergency Provider Emergency Medicine; PCP Student in an Organized Health Care Education/Training Program; Visit Provider Chiropractor
DX: R10.11 Right upper quadrant pain (principal); K83.8 Other specified diseases of biliary tract; K21.9 Gastro-esophageal reflux disease without esophagitis; Z85.828 Personal history of other malignant neoplasm of skin; E78.00 Pure hypercholesterolemia, unspecified; D64.9 Anemia, unspecified; K22.4 Dyskinesia of esophagus; Z79.01 Long term (current) use of anticoagulants; N13.30 Unspecified hydronephrosis; R82.90 Unspecified abnormal findings in urine; Z86.711 Personal history of pulmonary embolism; R74.01 Elevation of levels of liver transaminase levels
CPT/HCPCS: 36415; 74177; 74183; 76376; 80048; 80053; 81001; 81025; 83605; 83615; 83690; 83735; 84443; 85025; 85027; 87086; 87088; 87147; 96374; 96375; 96376; 99285; A9270; A9577; C9113; G0378; J0696; J1170; J2270; J2405; J7030; Q9967

== ENCOUNTER 2022-03-09 09:02 | Emergency (ER) | payer OTHER, SELFPAY ==
--- NOTE | 2022-03-09 09:03 | ED.FALL ---
HPI - Fall General Chief Complaint: Fall Stated Complaint: fall Time Seen by Provider: 03/09/22 09:17 Source: patient and RN notes reviewed Mode of arrival: ambulatory Limitations: no limitations History of Present Illness HPI Narrative: 46-year-old female with history of pulmonary embolism presents with concern for a fall. She reports she was told if she falls she needs to seek medical care because she is on Xarelto She reports yesterday she fell forward down 3 stairs catching herself with her arms. She denies any head injury, abdominal injury. She denies abdominal pain. She reports she has pain in the back of her right thigh. She reports mild aching that worsens with weightbearing and extending the leg. She denies warmth, redness, swelling in the extremity. She denies shortness of breath. She denies lacerations, abrasions, bruising. MD complaint: fall Related Data Home Medications Medication Instructions Recorded Confirmed alprazolam 0.25 mg tablet (Xanax) 0.25 mg PO HS PRN Anxiety 01/15/20 03/09/22 cyclobenzaprine 5 mg tablet 5 mg PO HS PRN Muscle Spasm 01/15/20 03/09/22 ondansetron 4 mg disintegrating 4 mg PO QID PRN Nausea 01/15/20 03/09/22 tablet pantoprazole 40 mg tablet,delayed 40 mg PO BID 01/15/20 03/09/22 release ranitidine HCl 150 mg tablet 150 mg PO HS 01/16/22 03/09/22 amoxicillin 875 mg-potassium 1 tablet PO BID 03/09/22 03/09/22 clavulanate 125 mg tablet Allergies Allergy/AdvReac Type Severity Reaction Status Date / Time ketoconazole Allergy Intermediate Loss of Verified 03/09/22 09:06 Consciousness Review of Systems Review of Systems: CONSTITUTIONAL: Denies malaise, chills, sweats, or fever. SKIN: Denies rash or itching, open skin, laceration, abrasion, redness, warmth, swelling. MUSCULOSKELETAL: Reports right posterior thigh pain NEUROLOGIC: Denies numbness, weakness All systems reviewed & are unremarkable except as noted in HPI and below PMFSH Past Medical History Medical History (Updated 03/09/22 @ 09:31 by Yumiko Mooney NP) Basal cell carcinoma resected from her left shoulder GERD (gastroesophageal reflux disease) History of pulmonary embolism Hypercholesterolemia Iron deficiency anemia Jackhammer esophagus Morbid obesity Screening mammogram for breast cancer Surgical History Surgical History (Updated 01/16/22 @ 22:26 by Angely Gtz NP) History of dilation and curettage January 12, 2020 History of laparoscopic cholecystectomy History of removal of pigmented skin lesion History of tubal ligation Hx of tonsillectomy Family History Family History Mother Breast cancer COPD (chronic obstructive pulmonary disease) Grandparent Parkinson's disease Social History Social History (Updated 01/16/22 @ 22:22 by Angely Gtz NP) Social History: Primary care physician: Dr. Juan Jean Code status: Full code the patient lives with her of 25 years and 2 children, son and daughter. 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 She is a lifelong nonsmoker and never drinks alcohol or uses illicit substances. The patient was adopted but knows that she had 1 biological sister and 5 biological brothers. 1 of her biological brother as an infant. 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 There is no relevant family history pertinent to the presenting complaint Exam Narrative: GENERAL: Well-appearing, well-nourished
[2022-03-09 09:08] VITALS: BP 131/60; PULSE 80; RESP 16; TEMP 36.3; O2SAT 99
[2022-03-09 09:09] VITALS: BP 131/60; PULSE 80; RESP 16; TEMP 36.3; O2SAT 99
== END 2022-03-09 09:38 | disposition home or self-care (01) ==
PROVIDERS: Emergency Provider Nurse Practitioner; PCP Student in an Organized Health Care Education/Training Program
DX: S76.311A Strain of muscle, fascia and tendon of the posterior muscle group at thigh level, right thigh, initial encounter (principal); W10.9XXA Fall (on) (from) unspecified stairs and steps, initial encounter; K21.9 Gastro-esophageal reflux disease without esophagitis; Z86.711 Personal history of pulmonary embolism; E78.00 Pure hypercholesterolemia, unspecified; E66.01 Morbid (severe) obesity due to excess calories; Z68.35 Body mass index [BMI] 35.0-35.9, adult; Z85.828 Personal history of other malignant neoplasm of skin
CPT/HCPCS: 99213; G0463

== ENCOUNTER 2023-10-22 11:05 | Emergency (ER) | payer OTHER, SELFPAY ==
[2023-10-22 11:13] VITALS: BP 152/61; PULSE 92; RESP 16; TEMP 37.1; O2SAT 99
--- NOTE | 2023-10-22 11:16 | ED.WOUNDLAC ---
HPI - Wound/Laceration General Chief Complaint: Wound/Laceration Stated Complaint: Right Hand Thumb Laceration Source: patient Mode of arrival: ambulatory Limitations: no limitations History of Present Illness HPI narrative: 48 y/o female presented for c/o laceration to right thumb sustained today while using a mandolin slicer. laceration is to the finger tip, denies nail involvement. Unsure of last tetanus. Pt on anticoagulant for hx PE. Related Data Home Medications Medication Instructions Recorded Confirmed alprazolam 0.25 mg tablet (Xanax) 0.25 mg PO HS PRN Anxiety 01/15/20 10/22/23 pantoprazole 40 mg tablet,delayed 40 mg PO DAILY 10/22/23 10/22/23 release Allergies Allergy/AdvReac Type Severity Reaction Status Date / Time ketoconazole Allergy Intermediate Loss of Verified 10/22/23 11:12 Consciousness Review of Systems Review of Systems: CONSTITUTIONAL: Denies body aches, fever, chills, or sweats. EYES: Denies visual changes, redness, or discharge. ENT: Denies rhinorrhea, congestion CARDIOVASCULAR: Denies chest pain, palpitations, or edema. RESPIRATORY: Denies cough or dyspnea. GASTROINTESTINAL: Denies abdominal pain, nausea, vomiting, or diarrhea. SKIN: reports right thumb lac MUSCULOSKELETAL: Denies back pain, joint pain, or myalgia. NEUROLOGIC: Denies, numbness, tingling, or weakness. [facility], LAT[facility] Past Medical History Medical History Basal cell carcinoma resected from her left shoulder GERD (gastroesophageal reflux disease) History of pulmonary embolism Hypercholesterolemia Iron deficiency anemia Jackhammer esophagus Morbid obesity Screening mammogram for breast cancer Surgical History Surgical History History of dilation and curettage January 12, 2020 History of laparoscopic cholecystectomy History of removal of pigmented skin lesion History of tubal ligation Hx of tonsillectomy Family History Family History Mother Breast cancer COPD (chronic obstructive pulmonary disease) Grandparent Parkinson's disease Social History Social History Social History: Primary care physician: Dr. Juan Jean Code status: Full code the patient lives with her of 25 years and 2 children, son and daughter. 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 She is a lifelong nonsmoker and never drinks alcohol or uses illicit substances. The patient was adopted but knows that she had 1 biological sister and 5 biological brothers. 1 of her biological brother as an infant. 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 Please see nursing chart for further information. There is no relevant family history pertinent to the presenting complaint Exam Narrative: GENERAL: Well-appearing EYES: conjunctivae clear, and EOMI. ENT: Mucous membranes moist. Oropharynx without annelise
[2023-10-22 11:17] VITALS: BP 152/61; PULSE 92; RESP 16; TEMP 37.1; O2SAT 99
[2023-10-22] MEDS: LIDOCAINE HCL 1% LOCAL INJ 2 ML AMPUL 4 ML INFILTRATE (11:47)
[2023-10-22] MEDS: TETANUS,DIPHTHERIA,AC PERTUSSIS ADULT (0.5 ML) BOOSTRIX IM (12:26)
== END 2023-10-22 12:36 | disposition home or self-care (01) ==
PROVIDERS: Emergency Provider Nurse Practitioner Family; PCP Student in an Organized Health Care Education/Training Program
DX: S61.011A Laceration without foreign body of right thumb without damage to nail, initial encounter (principal); W27.8XXA Contact with other nonpowered hand tool, initial encounter; Z23 Encounter for immunization; K21.9 Gastro-esophageal reflux disease without esophagitis; E78.00 Pure hypercholesterolemia, unspecified; E66.01 Morbid (severe) obesity due to excess calories; Z68.41 Body mass index [BMI] 40.0-44.9, adult; Z85.828 Personal history of other malignant neoplasm of skin; Z86.711 Personal history of pulmonary embolism
CPT/HCPCS: 12001; 90471; 90715; 99213; G0463